=== PATIENT | female | born 1950 | race Caucasian/White ===

== ENCOUNTER → 2021-10-01 10:46 | Outpatient (CLI) | payer MEDICARE, SELFPAY ==
[2021-10-01 19:12] LABS: SARS-CoV-2 RNA PCR Negative
== END ==
PROVIDERS: PCP Internal Medicine; Visit Provider Nurse Practitioner
DX: R05.9 Cough, unspecified (principal); Z20.822 Contact with and (suspected) exposure to COVID-19
CPT/HCPCS: C9803; U0003; U0005

== ENCOUNTER 2021-10-10 08:56 | Outpatient (CLI) | payer MEDICARE, SELFPAY ==
[2021-10-10 10:00] LABS: Alanine Aminotransferase 45 U/L (4-35); Albumin Level 3.9 g/dL (3.5-5.1); Alkaline Phosphatase 90 U/L (38-126); Anion Gap 8 mmol/L (8-16); Aspartate Amino Transferase 45 U/L (14-36); Bilirubin,Total 0.5 mg/dL (0.2-1.3); Blood Urea Nitrogen 16 mg/dL (7-17); Calcium 8.8 mg/dL (8.4-10.2); Carbon Dioxide 26 mmol/L (22-30); Chloride 107 mmol/L (98-107); Cholesterol 176 mg/dL (0-200); Estimated Glomerular Filt Rate > 60; Glucose 114 mg/dL (65-110); HDL Direct 62 mg/dL; Potassium 4.4 mmol/L (3.4-5.0); Sodium 141 mmol/L (137-145); Triglycerides 214 mg/dL (<150)
[2021-10-10 10:11] LABS: LDL Cholesterol Direct 77 mg/dL
[2021-10-10 10:14] LABS: Iron 66 ug/dL (37-170)
[2021-10-10 10:17] LABS: Vitamin D 25 Hydroxy 32.8 ng/mL
[2021-10-10 10:26] LABS: Percent Iron Saturation 24 % (20-50)
[2021-10-10 10:30] LABS: Thyroid Stimulating Hormone 0.436 uIU/mL (0.465-4.680)
[2021-10-10 12:31] LABS: Hemoglobin A1C 5.8 % (<5.7)
== END 2021-10-10 08:57 | disposition home or self-care (01) ==
PROVIDERS: PCP Internal Medicine; Referring Provider Internal Medicine; Visit Provider Nurse Practitioner
DX: E55.9 Vitamin D deficiency, unspecified (principal); Z13.1 Encounter for screening for diabetes mellitus; Z13.6 Encounter for screening for cardiovascular disorders; Z13.220 Encounter for screening for lipoid disorders; Z13.21 Encounter for screening for nutritional disorder; Z86.39 Personal history of other endocrine, nutritional and metabolic disease; G47.00 Insomnia, unspecified
CPT/HCPCS: 36415; 80053; 80061; 82306; 83036; 83540; 83550; 84443

== ENCOUNTER 2021-11-13 10:02 | Outpatient (CLI) | payer MEDICARE, SELFPAY ==
--- NOTE | ~2021-11-13 | MR_ITS ---
EXAMINATION: MR lumbar spine wo con EXAM DATE: 11/13/2021 11:18 INDICATION: LUMBAR RADICULOPATHY TECHNIQUE: Multi-sequential, multiplanar MR images of the lumbar spine were obtained without contrast . Sagittal T1, T2, T2 fat saturation images. Axial T2 weighted images. There is no prior study for comparison. FINDINGS: There is mild to moderate compression fracture of T11 vertebral body, has been injected wit h methylmethacrylate. There are laminotomies of L4 and L5. Partially fused L4-5 and L5-S1 vertebral b odies. The conus medullaris terminates at the L1/2 level and has normal signal intensity and morpholo gy. Paraspinal soft tissue is unremarkable. The vertebral bodies are aligned in the AP dimension. Level by level evaluation: T12-L1: There is a minimal diffuse disc bulge. Facet arthropathy: Mild. Neural foraminal stenosis: No stenosis. Central canal stenosis: No stenosis. L1-L2: There is a minimal diffuse disc bulge. Facet arthropathy: Mild. Neural foraminal stenosis: No stenosis. Central canal stenosis: No stenosis. L2-L3: There is a minimal diffuse disc bulge. Facet arthropathy: Mild. Neural foraminal stenosis: No stenosis. Central canal stenosis: No stenosis. L3-L4: There is a mild diffuse disc bulge. Facet arthropathy: Mild to moderate bilateral. Neural foraminal stenosis: No stenosis. Central canal stenosis: No stenosis. L4-L5: Partially fused. Facet arthropathy: Partially fused. Neural foraminal stenosis: Mild left. Central canal stenosis: No stenosis. L5-S1: Partially fused Facet arthropathy: Partially fused. Neural foraminal stenosis: Mild to moderate left, mild right. Central canal stenosis: No stenosis. IMPRESSION: 1. Treated mild to moderate T11 compression fracture. 2. L4 and L5 laminotomies. 3. Otherwise mild to moderate lumbar spondylosis. Reviewed, dictated and finalized at location G. GRINDER
--- NOTE | ~2021-11-13 | XR_ITS ---
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 Anteroposterior and flexed lateral views of the left knee were obtained. 2. Anteroposterior and flexed lateral views of the right knee were obtained. COMPARISON: None. FINDINGS: Alignment is normal at both knees. No fractures. Joint spaces are normal at both knees. Tiny marginal osteophytes at the bilateral patellae consistent with minimal patellofemoral osteoarthritis. Larger enthesophytes at the patellar insertions of the bilateral quadriceps tendons. Soft tissues are unrema rkable. No knee joint effusions. IMPRESSION: 1. Minimal osteoarthritis at the bilateral patellofemoral compartments. Reviewed, dictated and finalized at location A. FIGHTER IMPRESSION: 1. Minimal osteoarthritis at the bilateral patellofemoral compartments.
== END 2021-11-13 10:03 | disposition home or self-care (01) ==
LOC: ANHIMG 10:04
PROVIDERS: PCP Internal Medicine; Visit Provider Nurse Practitioner Adult Health
DX: M54.6 Pain in thoracic spine (principal); M48.54XA Collapsed vertebra, not elsewhere classified, thoracic region, initial encounter for fracture; Z98.1 Arthrodesis status; M47.816 Spondylosis without myelopathy or radiculopathy, lumbar region; M17.0 Bilateral primary osteoarthritis of knee
CPT/HCPCS: 72148; 73560

== ENCOUNTER 2021-11-15 06:53 | Outpatient (CLI) | payer MEDICARE, SELFPAY ==
--- NOTE | ~2021-11-15 | MR_ITS ---
EXAMINATION: MR thoracic spine wo con EXAM DATE: 11/15/2021 07:58 INDICATION: Thoracic back pain. TECHNIQUE: Multi-sequential, multiplanar MR images of the thoracic spine were obtained without contra st. Sagittal T1, T2, T2 fat saturation, axial T2 weighted images reviewed. There is no prior study for comparison. FINDINGS: There is methylmethacrylate injection at T8 and T11, treated compression fractures. Moderat e to severe central loss of the T8 vertebral body height and mild to moderate at T11. There are no ac jaleesa compression fractures. The spinal cord signal intensity and intrinsic morphology is normal. There is mild to moderate thoracic facet arthropathy. There is mild to moderate thoracic disc disease but discs are confined to their margins. There is moderate right neural foraminal stenosis at T8/9, other shepherd no more than mild neural foraminal stenosis at some of the lower thoracic levels. Paraspinal sof t tissue is unremarkable. IMPRESSION: 1. No acute thoracic findings. 2. Mild to moderate spondylosis. 3. Treated compression fractures T8, T11. Reviewed, dictated and finalized at location B. 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
== END 2021-11-15 06:54 | disposition home or self-care (01) ==
PROVIDERS: PCP Internal Medicine; Visit Provider Nurse Practitioner Adult Health
DX: M47.814 Spondylosis without myelopathy or radiculopathy, thoracic region (principal); M17.0 Bilateral primary osteoarthritis of knee; M48.54XA Collapsed vertebra, not elsewhere classified, thoracic region, initial encounter for fracture
CPT/HCPCS: 72146

== ENCOUNTER 2021-12-11 14:24 | Outpatient (CLI) | payer MEDICARE, SELFPAY ==
--- NOTE | ~2021-12-11 | MM_ITS ---
EXAMINATION: MM screening mayank BI w sharon HISTORY: Screening TECHNIQUE: Craniocaudal and mediolateral oblique 3-D tomosynthesis images were obtained and synthetic 2-D images were generated. CAD analysis was submitted and interpreted. COMPARISON: No prior mammogram is available for comparison at this institution. BREAST PARENCHYMAL COMPOSITION: Breast composed of scattered areas of fibroglandular density FINDINGS: There are scattered breast asymmetries in both breasts. There are no suspicious calcificati ons or skin thickening. No definite architectural distortion. IMPRESSION: 1. Bilateral breast asymmetries. 2. Additional mammographic views and possible breast ultrasound are recommended. BI-RADS Category 0: Incomplete: Needs additional imaging evaluation. Reviewed, dictated and finalized at location A. S SKIMMER IMPRESSION: 1. Bilateral breast asymmetries. 2. Additional mammographic views and possible breast ultrasound are recommended . BI-RADS Category 0: Incomplete: Needs additional imaging evaluation.
== END 2021-12-11 14:25 | disposition home or self-care (01) ==
PROVIDERS: PCP Internal Medicine; Visit Provider Nurse Practitioner
DX: Z12.31 Encounter for screening mammogram for malignant neoplasm of breast (principal); R92.8 Other abnormal and inconclusive findings on diagnostic imaging of breast
CPT/HCPCS: 77063; 77067

== ENCOUNTER 2022-01-22 10:04 | Outpatient (CLI) | payer MEDICARE, SELFPAY ==
--- NOTE | 2022-01-25 12:25 | WPDHOLTEREM ---
Holter/Event Monitor Holter/Event Monitor Date of procedure: 01/22/22 Holter/Event Procedure: 48 Hr Holter Monitor Indications: Syncope Conclusion: 1. 48 hour holter monitor on 01/22/22. 2. Underlying rhythm is sinus rhythm. HR range 53-132 bpm; average HR 79 bpm. 3. There are 215 premature supraventricular complexes and 6 supraventricular couplets. No supraventricular tachycardia. 4. There are 19 premature ventricular complexes and 1 ventricular couplet. No ventricular tachycardia. 5. No sinoatrial or atrioventricular blocks. No significant pauses greater than 2 seconds. 6. Patient reports upper back pain which demonstrates sinus rhythm at 85 bpm.
== END 2022-01-22 10:05 | disposition home or self-care (01) ==
LOC: ANHCARD 10:06
PROVIDERS: Visit Provider Nurse Practitioner
DX: R55 Syncope and collapse (principal)
CPT/HCPCS: 93225; 93226

== ENCOUNTER 2022-03-05 14:32 | Outpatient (CLI) | payer MEDICARE, SELFPAY ==
--- NOTE | ~2022-03-05 | XR_ITS ---
EXAM: XR knee RT 2V, XR tibia fibula RT 2V HISTORY: PAIN IN RT KNEE, PROXIMAL FIBULA PAIN, INJURY X 5DAYS COMPARISON: None available FINDINGS: Decreased mineralization. Moderate medial joint space narrowing. Mild tricompartmental ost eophytosis. Quadriceps enthesopathy. No significant knee joint effusion. Incidental note of mild dege nerative change in the right ankle. No fracture or dislocation. IMPRESSION: No acute osseous finding in the right knee or right tibia/fibula. Reviewed, dictated and finalized at location K. IMPRESSION: No acute osseous finding in the right knee or right tibia/fibula.
== END 2022-03-05 14:33 | disposition home or self-care (01) ==
LOC: ANHIMG 14:38
PROVIDERS: PCP Internal Medicine; Visit Provider Nurse Practitioner
DX: M79.604 Pain in right leg (principal); M25.561 Pain in right knee
CPT/HCPCS: 73560; 73590

== ENCOUNTER 2022-04-09 11:06 | Outpatient (CLI) | payer MEDICARE, SELFPAY ==
[2022-04-09 11:40] LABS: Alanine Aminotransferase 43 U/L (6-35); Albumin Level 4.3 g/dL (3.5-5.1); Alkaline Phosphatase 96 U/L (38-126); Anion Gap 4 mmol/L (8-16); Aspartate Amino Transferase 34 U/L (14-36); Bilirubin,Total 0.7 mg/dL (0.2-1.3); Blood Urea Nitrogen 20 mg/dL (7-17); Calcium 8.9 mg/dL (8.4-10.2); Carbon Dioxide 30 mmol/L (22-30); Chloride 107 mmol/L (98-107); Cholesterol 217 mg/dL (0-200); Estimated Glomerular Filt Rate > 60; Glucose 114 mg/dL (65-110); HDL Direct 75 mg/dL; Potassium 4.1 mmol/L (3.4-5.0); Sodium 141 mmol/L (137-145); Triglycerides 122 mg/dL (<150)
[2022-04-09 11:41] LABS: Hemoglobin A1C 5.5 % (<5.7)
[2022-04-09 11:52] LABS: LDL Cholesterol Direct 99 mg/dL
[2022-04-09 11:57] LABS: Iron 70 ug/dL (37-170)
[2022-04-09 12:08] LABS: Percent Iron Saturation 22 % (20-50)
[2022-04-09 12:30] LABS: Vitamin B12 > 1000.0 pg/mL (239-931)
[2022-04-09 13:00] LABS: Vitamin D 25 Hydroxy 32.7 ng/mL
== END 2022-04-09 11:07 | disposition home or self-care (01) ==
LOC: ANHLAB 11:09
PROVIDERS: PCP Internal Medicine; Visit Provider Internal Medicine
DX: R73.03 Prediabetes (principal); E55.9 Vitamin D deficiency, unspecified; Z86.39 Personal history of other endocrine, nutritional and metabolic disease; Z13.6 Encounter for screening for cardiovascular disorders; Z98.84 Bariatric surgery status; Z13.220 Encounter for screening for lipoid disorders
CPT/HCPCS: 36415; 80053; 80061; 82306; 82607; 83036; 83540; 83550

== ENCOUNTER 2023-03-13 10:47 | Outpatient (CLI) | payer MEDICARE, SELFPAY ==
--- NOTE | ~2023-03-13 | XR_ITS ---
AP and lateral views of the left hip Clinical history: Pain Findings: No acute fracture or dislocation is seen. Osseous alignment is anatomic. There is minimal d egenerative change of the left hip. Soft tissues are unremarkable. Impression: Minimal degenerative change of the left hip. Reviewed, dictated and finalized at location . Impression: Minimal degenerative change of the left hip.
== END 2023-03-13 10:48 | disposition home or self-care (01) ==
PROVIDERS: PCP Family Medicine; Visit Provider Family Medicine
DX: M25.552 Pain in left hip (principal)
CPT/HCPCS: 73502

== ENCOUNTER 2024-03-17 11:46 | Outpatient (CLI) | payer MEDICARE, SELFPAY ==
--- NOTE | ~2024-03-17 | XR_ITS ---
XR knee RT 3V DATE: 03/17/2024 12:17 INDICATION: Acute right knee pain TECHNIQUE: AP, lateral, sunrise views COMPARISON: None FINDINGS: There is diffuse prominent osteopenia. Superior pole patellar enthesopathy at quadriceps tendon insertion site. Minimal periarticular spurri ng of the patella. The joint spaces are relatively well preserved. No radiopaque intra-articular loos e body or chondrocalcinosis. No fracture, dislocation or joint effusion. No periosteal reaction or bone destruction. IMPRESSION: Prominent osteopenia Minimal osteoarthritis No fracture or dislocation or joint effusion Reviewed, dictated and finalized at location B.
== END 2024-03-17 11:47 ==
PROVIDERS: PCP Internal Medicine; Visit Provider Internal Medicine
DX: M25.561 Pain in right knee (principal); M85.88 Other specified disorders of bone density and structure, other site; M17.11 Unilateral primary osteoarthritis, right knee
CPT/HCPCS: 73562